=== PATIENT | female | born 2000 | race Two or more races ===

== ENCOUNTER 2025-04-01 22:49 | Emergency (ER) | payer MEDICAID, SELFPAY ==
[2025-04-01 22:51] VITALS: BMI 22.4
--- NOTE | 2025-04-01 22:54 | EKG_ITS ---
[facility] Test Date: 2025-04-01 Pat Name: PARMINDER FARR Department: Room: - Gender: Female [employer]iner [employer]: : 2000 Requested By: Manohar Johnson Order Number: [id number] Reading MD: Manohar Johnson Measurements Intervals [place] Rate: 73 P: 57 CO: 139 QRS: 65 QRSD: 81 T: 61 QT: 378 QTc: 417 Interpretive Statements SINUS RHYTHM No previous ECG available for comparison /store/S0/[id number]/ecg/[id number].pdf
[2025-04-01 23:17] VITALS: BP 114/76; PULSE 66; RESP 16; TEMP 36.9; O2SAT 99
--- NOTE | 2025-04-01 23:44 | XR_ITS ---
Examination: PA chest single view Technique: Upright PA chest single view Date and time: April 01, 2025 11:58 PM Indications: Syncopal episode today. Findings: Normal heart size Lungs are clear The osseous structures are intact Impression: No active disease
--- NOTE | 2025-04-01 23:44 | XR_ITS ---
Examination: CT brain head without contrast. 2-D sagittal coronal reconstructions Date and time of exam:April 01, 2025 1150 hrs. Indications: Syncopal episode with blurred vision today CTDI: vol (mGy):45.5 DLP: (mGycm):870 Technique: Multiple CT axial sections of the brain have been obtained, 5 mm slice thickness. Contrast has not been administered. 2-D sagittal, coronal reconstructions have been obtained Low dose protocols were performed. One or more of the following dose reduction techniques were used; automated exposure control, adjustment of the mA and/or KV according to patient size, use of iterative reconstruction technique. Findings: No significant ventricular enlargement. Intra-axial or extra-axial hemorrhage density is not seen. No mass effect or midline shift Basal cisterns are not remarkable. Fourth ventricle is midline. Cranial vault intact. Impression: Negative for acute hemorrhage, mass effect or midline shift If symptoms persist, as clinically warranted, consider brain MRI follow-up
--- NOTE | 2025-04-01 23:45 | EDRME_ITS ---
Rapid Medical Screening Exam [facility] Arrival date/time: 04/01/25 22:49 24F with no significant PMH presents to ED with 2 episodes of syncope (1st around 8 PM yesterday). Prior to symptoms, patient had dizziness, and L eye blurry vision. Patient also has some intermittent CP, though not currently. Patient denies psych and alcohol/drug use, as well as recent emotional events. Chief Complaint: Syncope / Near Syncope Vital signs: Vital Signs Temperature 98.4 F 04/01/25 23:17 Pulse Rate 66 04/01/25 23:17 Respiratory Rate 16 04/01/25 23:17 Blood Pressure 114/76 04/01/25 23:17 Pulse Oximetry (%) 99 04/01/25 23:17 Oxygen Delivery Method Room Air 04/01/25 23:17
[2025-04-02 00:24] LABS: Collection Type, Urine Clean Catch
[2025-04-02 00:36] LABS: Bacteria,Urine Rare; Bilirubin,Urine Negative (Negative); Blood,Urine Negative (Negative); Clarity,Urine Clear (Clear/Hazy); Color,Urine Colorless (Lt Yel-Yel); Culture Indicated,Urine Not Indicated; Glucose, Urine Negative (Negative); Ketones,Urine Negative (Negative); Leukocyte Esterase,Urine Negative (Negative); Nitrite,Urine Negative (Negative); PH,Urine 7.0 (5.0-7.0); Protein,Urine Negative (Neg - Trace); RBC,Urine 1 /hpf (0-3); Specific Gravity,Urine 1.004 (1.001-1.035); Squamous Epithelial Cell,Urine 5 /hpf (0-5); Urobilinogen,Urine Negative mg/dL (0.0-1.0); WBC,Urine < 1 /hpf (0-5)
[2025-04-02 00:37] LABS: HCG Qualitative,Urine Negative
[2025-04-02 00:38] LABS: Amphetamine/Methamp Scrn,U Negative (Negative); Barbiturate Screen,Urine Negative (Negative); Benzodiazepines Screen,Urine Negative (Negative); Benzoylecgonine Screen, Ur Negative (Negative); Fentanyl Screen,Urine Negative (Negative); Opiate Screen,Urine Negative (Negative); THC Screen,Urine Negative (Negative)
[2025-04-02 00:40] LABS: Basophils # (Auto) 0.0 Thou/mm3 (0.0-0.2); Basophils % (Auto) 1 % (0-2.5); Eosinophils # (Auto) 0.1 Thou/mm3 (0.0-0.5); Eosinophils % (Auto) 1 % (0-10); Hematocrit 35.2 % (36.0-46.0); Hemoglobin 12.3 g/dL (12.0-16.0); Immature Granulocytes Auto 0.01 Thou/mm3 (0.00-0.00); Lymphocytes # (Auto) 2.2 Thou/mm3 (1.0-4.8); Lymphocytes % (Auto) 34 % (10-50); Mean Corpuscular HGB Conc 34.9 g/dl (31.0-37.0); Mean Corpuscular Hemoglobin 30.7 pg (25.0-35.0); Mean Corpuscular Volume 88 fL (80-100); Monocytes # (Auto) 0.4 Thou/mm3 (0.0-0.8); Monocytes % (Auto) 6 % (0-12); Neutrophils # (Auto) 3.9 Thou/mm3 (1.8-7.7); Neutrophils % (Auto) 59 % (37-80); Nucleated Red Blood Cell # 0.00 Thou/mm3 (0.00-0.00); Nucleated Red Blood Cell % 0 /100 WBC (0); Platelet Count 198 Thou/mm3 (140-440); RDW Standard Deviation 39.5 fL (36.4-46.3); Red Blood Count 4.01 Miln/mm3 (4.00-5.20); White Blood Count 6.6 Thou/mm3 (3.6-11.0)
[2025-04-02 00:42] VITALS: BP 114/69; PULSE 73; RESP 18; O2SAT 100
--- NOTE | 2025-04-02 00:53 | PC.NURSE ---
PT ARRIVES TO ED WITH SPOUSE FOR 2 EPISODES OF SYNCOPE. PT STATES SHE HAD ONE EPISODE AROUND 0100 04/01/2025 AND ANOTHER ONE AROUND 2200. BOTH WITNESSED BY HER COWORKERS. PT DENIES HITTING HEAD AND STATES THAT HER COWORKERS GENTLY PLACED HER ON THE FLOOR. PT ALSO STATES NOTICED LEFT EYE BLURRY VISION. PT STATES THAT THE ONLY OTHER TIME SHES THIS HAS HAPPENDED TO HER WAS APPROX 10 YEARS AGO
[2025-04-02 01:10] LABS: Alanine Aminotransferase 7 U/L (10-49); Albumin, Serum 4.4 gm/dL (3.5-5.0); Albumin/Globulin Ratio 1.6 (1.2-2.2); Alkaline Phosphatase 74 U/L (46-116); Anion Gap 8 (7-16); Aspartate Amino Transferase 14 U/L (0-34); BUN/Creatinine Ratio 9 Ratio (12-20); Bilirubin,Total 0.7 mg/dL (0.3-1.2); Blood Urea Nitrogen 7 mg/dL (9-23); Calcium 8.9 mg/dL (8.3-10.6); Calcium (Corrected) 8.9 mg/dL (8.5-10.1); Carbon Dioxide 27.0 mMol/L (20.0-31.0); Chloride 105 mMol/L (98-107); Creatinine (Component) 0.8 mg/dL (0.6-1.3); Estimated Creatinine Clearance 78.6 mL/min (>60); Globulin 2.7 gm/dL (2.3-3.5); Glucose 95 mg/dL (74-106); Osmolality,Calculated 277 (275-295); Potassium 4.0 mMol/L (3.4-5.1); Sodium 140 mMol/L (136-145); Total Protein 7.1 gm/dL (5.7-8.2); Troponin I < 0.002 ng/mL (0.0-0.045); eGFR > 60 See Note
--- NOTE | 2025-04-02 01:14 | PD.EDSYNC ---
ED Syncope RME/HPI General Chief Complaint: Syncope / Near Syncope Stated Complaint: FAINTED Arrival date/time: 04/01/25 22:49 RME / HPI RME / HPI narrative: 04/01/25 22:49 24F with no significant PMH presents to ED with 2 episodes of syncope (1st around 8 PM yesterday). Prior to symptoms, patient had dizziness, and L eye blurry vision. Patient also has some intermittent CP, though not currently. Patient denies psych and alcohol/drug use, as well as recent emotional events. Dr. Hogan?s Main ED Evaluation: 24yo female Related Data Allergies Allergy/AdvReac Type Severity Reaction Status Date / Time No Known Allergies Allergy Verified 04/01/25 22:53 Review of Systems Review of Systems Systems Reviewed: All systems reviewed, normal except as documented Past Medical History Past Medical History CARDIAC: Negative Congestive Heart Failure RESPIRATORY: Negative Chronic Obstructive Pulmonary Disease (COPD) GENITOURINARY: Negative Renal Disease ENDOCRINE: Negative Diabetes Mellitus Type 1 or Diabetes Mellitus Type 2 Social History SMOKING STATUS: Never smoker Course Quality Measures none Orders Category Date Time Status Blood glucose [Bedside Blood Glucose] NOW Care 04/01/25 22:54 Active EKG (ED ONLY) *Do not use* NOW Care 04/01/25 22:[address] head/brain wo con Stat Exams 04/01/25 23:44 Completed EKG (ED Only) Stat Exams 04/01/25 22:54 Draft XR chest 1V portable Stat Exams 04/01/25 23:44 Completed CBC Stat Lab 04/01/25 23:44 Completed Comprehensive Metabolic Panel Stat Lab 04/01/25 23:44 Completed Drug Screen,Urine Stat Lab 04/01/25 20:10 Completed HCG Qualitative,Urine Stat Lab 04/01/25 20:10 Completed Troponin I Stat Lab 04/01/25 23:44 Completed Urinalysis, C/S if Indicated Stat Lab 04/01/25 20:10 Completed Vital Signs Vital signs: Vital Signs Temperature 98.4 F 04/01/25 23:17 Pulse Rate 66 04/01/25 23:17 Respiratory Rate 16 04/01/25 23:17 Blood Pressure 114/76 04/01/25 23:17 Pulse Oximetry (%) 99 04/01/25 23:17 Oxygen Delivery Method Room Air 04/01/25 23:17 Syncope MDM Narrative MDM Narrative:: Scribe Attestation: 04/02/25 - Nesha Zamora am scribing for and in the presence of Dr. Hogan. Patient data External records reviewed:: [facility] previous records (Per chart review, patient has no previous ED visits or admissions to this facility.) Clinical information provided by:: patient Social determinants that could affect healthcare access:: none Patient has the following chronic illnesses:: none How is presenting disease/condition affected by chronic disease/condition?: no chronic disease Evaluation data The following diagnostics were reviewed and interpreted by me:: lab results, radiology exam(s) and EKG tracing(s) Lab and/or radiology exams considered but not ordered:: none Interpretation Summary: [facility] Report Signed Patient: PARMINDER FARR Highlighter. Record#: [id number] Birthdate: 2000 Age/Sex: 24 / F Location: [facility] Attending Dr: Ordering Physician: Manohar Johnson PA-C Date of Service: 04/01/25 Procedure(s): XR chest 1V portable Accession Number(s): [id number] cc: Anant Merlos MD; Manohar Johnson PA-C~ Examination: PA chest single view Technique: Upright PA chest single view Date and time: April 01, 2025 11:58 PM Indications: Syncopal episode today. Findings: Normal heart size Lungs are clear The osseous structures are intact Impression: No active disease Dictated By: Anant Merlos MD Signed By: <Electronically signed by Anant Merlos MD in OV> 04/02/25 0001 [facility] Report Signed Patient: LIZANDRO FARRInadco. Record#: [id number] Birthdate: 2000 Age/Sex: 24 / F Location: [facility] Attending Dr: Ordering Physician: Manohar Johnson PA-C Date of Service: 04/01/25 Procedure(s): CT head/brain wo con Accession Number(s): [id number] cc: Anant Merlos MD; Manohar Johnson PA-C~ Examination: CT brain head without contrast. 2-D sagittal coronal reconstructions Date and time of exam:April 01, 2025 1150 hrs. Indications: Syncopal episode with blurred vision today CTDI: vol (mGy):45.5 DLP: (mGycm):870 Technique: Multiple CT axial sections of the brain have been obtained, 5 mm slice thickness. Contrast has not been administered. 2-D sagittal, coronal reconstructions have been obtained Low dose protocols were performed. One or more of the following dose reduction techniques were used; automated exposure control, adjustment of the mA and/or KV according to patient size, use of iterative reconstruction technique. Findings: No significant ventricular enlargement. Intra-axial or extra-axial hemorrhage density is not seen. No mass effect or midline shift Basal cisterns are not remarkable. Fourth ventricle is midline. Cranial vault intact. Impression: Negative for acute hemorrhage, mass effect or midline shift If symptoms persist, as clinically warranted, consider brain MRI follow-up Dictated By: Anant Merlos MD Signed By: <Electronically signed by Anant Merlos MD in OV> 04/01/25 9853 Medications / Prescriptions Medications or Prescriptions considered but not ordered:: none Discharge Plan Patient/Caregiver Discharge Instructions Print Language: Latvian
--- NOTE | 2025-04-02 02:00 | PD.EDSYNC ---
ED Syncope RME/HPI General Chief Complaint: Syncope / Near Syncope Stated Complaint: FAINTED Time Seen by Provider: 04/02/25 02:02 Arrival date/time: 04/01/25 22:49 RME / HPI RME / HPI narrative: 04/01/25 22:49 24F with no significant PMH presents to ED with 2 episodes of syncope (1st around 8 PM yesterday). Prior to symptoms, patient had dizziness, and L eye blurry vision. Patient also has some intermittent CP, though not currently. Patient denies psych and alcohol/drug use, as well as recent emotional events. Dr. Hogan?s Main ED Evaluation: 24yo female with no significant past medical history presents to the ED for a chief complaint of syncope. Patient states she felt dizzy prior to passing out tonight. She states she feels better now. Denies headache or any other associated symptoms. Denies illicit drug use. NKA. Related Data Allergies Allergy/AdvReac Type Severity Reaction Status Date / Time No Known Allergies Allergy Verified 04/01/25 22:53 Review of Systems Review of Systems Systems Reviewed: All systems reviewed, normal except as documented Past Medical History Past Medical History CARDIAC: Negative Congestive Heart Failure RESPIRATORY: Negative Chronic Obstructive Pulmonary Disease (COPD) GENITOURINARY: Negative Renal Disease ENDOCRINE: Negative Diabetes Mellitus Type 1 or Diabetes Mellitus Type 2 Social History SMOKING STATUS: Never smoker ED Exam Narrative Physical exam: Generally patient is alert and in no obvious distress, heart regular rate and rhythm, lungs clear to auscultation equal bilaterally, abdomen soft bowel sounds present nondistended nontender, eyes pupils equal round reactive to light. No nystagmus. Neurologic exam no focal motor or sensory deficits cranial nerves II through XII grossly intact and no ataxia, skin warm pale and dry Course Quality Measures none Orders Category Date Time Status Blood glucose [Bedside Blood Glucose] NOW Care 04/01/25 22:54 Active EKG (ED ONLY) *Do not use* NOW Care 04/01/25 22:[address] head/brain wo con Stat Exams 04/01/25 23:44 Completed EKG (ED Only) Stat Exams 04/01/25 22:54 Draft XR chest 1V portable Stat Exams 04/01/25 23:44 Completed CBC Stat Lab 04/01/25 23:44 Completed Comprehensive Metabolic Panel Stat Lab 04/01/25 23:44 Completed Drug Screen,Urine Stat Lab 04/01/25 20:10 Completed HCG Qualitative,Urine Stat Lab 04/01/25 20:10 Completed Troponin I Stat Lab 04/01/25 23:44 Completed Urinalysis, C/S if Indicated Stat Lab 04/01/25 20:10 Completed Vital Signs Vital signs: Vital Signs Temperature 98.4 F 04/01/25 23:17 Pulse Rate 66 04/01/25 23:17 Respiratory Rate 16 04/01/25 23:17 Blood Pressure 114/76 04/01/25 23:17 Pulse Oximetry (%) 99 04/01/25 23:17 Oxygen Delivery Method Room Air 04/01/25 23:17 Syncope MDM Narrative MDM Narrative:: Scribe Attestation: 04/02/25 - Nesha Zamora am scribing for and in the presence of Dr. Hogan. I interpreted all labs. On the radiation monitor the patient had no ectopy. EKG done 11:15 PM shows normal sinus rhythm at a rate of 73 without ischemic change or ectopy. There is no electrolyte abnormality. No anemia. No urine infection. was negative. Cardiac workup was unremarkable. Prior to my evaluation a CAT scan of the brain was ordered which was negative. Patient data External records reviewed:: [facility] previous records (Per chart review, patient has no previous ED visits or admissions to this facility.) Clinical information provided by:: patient Social determinants that could affect healthcare access:: none Patient has the following chronic illnesses:: none How is presenting disease/condition affected by chronic disease/condition?: no chronic disease Evaluation data The following diagnostics were reviewed and interpreted by me:: lab results, radiology exam(s) and EKG tracing(s) Lab and/or radiology exams considered but not ordered:: none Interpretation Summary: [facility] Report Signed Patient: PARMINDER FARR. Record#: [id number] Birthdate: 2000 Age/Sex: 24 / F Location: [facility] Attending Dr: Ordering Physician: Manohar Johnson PA-C Date of Service: 04/01/25 Procedure(s): XR chest 1V portable Accession Number(s): [id number] cc: Anant Merlos MD; Manohar Johnson PA-C~ Examination: PA chest single view Technique: Upright PA chest single view Date and time: April 01, 2025 11:58 PM Indications: Syncopal episode today. Findings: Normal heart size Lungs are clear The osseous structures are intact Impression: No active disease Dictated By: Anant Merlos MD Signed By: <Electronically signed by Anant Merlos MD in OV> 04/02/25 0001 [facility] Report Signed Patient: PARMINDER FARR Record#: [id number] Birthdate: 2000 Age/Sex: 24 / F Location: [facility] Attending Dr: Ordering Physician: Manohar Johnson PA-C Date of Service: 04/01/25 Procedure(s): CT head/brain wo con Accession Number(s): [id number] cc: Anant Merlos MD; Manohar Johnson PA-C~ Examination: CT brain head without contrast. 2-D sagittal coronal reconstructions Date and time of exam:April 01, 2025 1150 hrs. Indications: Syncopal episode with blurred vision today CTDI: vol (mGy):45.5 DLP: (mGycm):870 Technique: Multiple CT axial sections of the brain have been obtained, 5 mm slice thickness. Contrast has not been administered. 2-D sagittal, coronal reconstructions have been obtained Low dose protocols were performed. One or more of the following dose reduction techniques were used; automated exposure control, adjustment of the mA and/or KV according to patient size, use of iterative reconstruction technique. Findings: No significant ventricular enlargement. Intra-axial or extra-axial hemorrhage density is not seen. No mass effect or midline shift Basal cisterns are not remarkable. Fourth ventricle is midline. Cranial vault intact. Impression: Negative for acute hemorrhage, mass effect or midline shift If symptoms persist, as clinically warranted, consider brain MRI follow-up Dictated By: Anant Merlos MD Signed By: <Electronically signed by Anant Merlos MD in OV> 04/01/25 4449 Medications / Prescriptions Medications or Prescriptions considered but not ordered:: none Medication administrations:: none Consultations Consultation(s) initiated? (list below): No Diagnosis Syncope Differential Diagnosis: other (See MDM) Most likely diagnosis given after review of the tests above:: see clinical impression below Admission Indicated Admission indicated?: not indicated Admission Request Was there a request for admission?: No Disposition Plan Disposition Plan: Discharge Discharge Attestation Discharge Attestation: The patient and all family members were given an opportunity to ask questions and understood the discharge instructions. Discharge instructions specifically effects, indications for sooner follow up or return to the emergency department, and the expected course of current diagnosis. Patient condition: Stable Discharge Plan Plan Patient Disposition: HOME (Self Care) Problem List Clinical Impression: Syncope Patient/Caregiver Discharge Instructions Education Materials: Causes of Syncope Additional Instructions: Keep well-hydrated. Follow-up with your doctor as needed for further treatment and evaluation. Return to ER as needed or if condition worsens. Print Language: Maori Stand Alone Forms: [facility] Award Info., Patient Portal Info Letter
[2025-04-02 02:39] VITALS: BP 114/69; PULSE 71; RESP 18; O2SAT 100
== END 2025-04-02 02:39 | disposition home or self-care (01) ==
LOC: SERX 04-02 04:24
PROVIDERS: Physician Assistant; Emergency Provider Emergency Medicine; PCP Family Medicine
DX: R55 Syncope and collapse (principal); H53.8 Other visual disturbances
CPT/HCPCS: 36415; 70450; 71045; 80053; 80307; 81001; 81025; 84484; 85025; 93005; 99283